=== PATIENT | female | born 1945 | race Asian ===

== ENCOUNTER → 2019-09-08 | Outpatient (CLI) | payer OTHER ==
[~2019-09-08] MED LIST: CONTRAST GIVEN. MC PRN; IOHEXOL 350 MG/ML 100 ML VIAL. IV ONE
[2019-09-08 10:41] LABS: CREATININE 0.9 mg/dL (0.6-1.0); GFR 61.4
--- NOTE | 2019-09-08 11:34 | RAD ---
CTA chest with contrast dated 09/08/2019. No comparison available. CLINICAL INDICATION: Dyspnea. History of lymphoma. TECHNIQUE: Contiguous axial imaging the chest performed following the intravenous demonstration of 100 cc Omnipaque 350. Study was performed as dedicated PE protocol with thin cut coronal MIPS 3-D reconstructions. One or more of the following individualized dose reduction techniques were utilized for this examination: 1. Automated exposure control 2. Adjustment of the mA and/or kV according to patient size 3. Use of iterative reconstruction technique FINDINGS: Contrast bolus is adequate. No evidence of central, lobar or segmental pulmonary embolus. The subsegmental branches are not well evaluated based on technique. Heart size mildly enlarged. No pericardial effusion. Coronary artery calcifications. There are enlarged partially calcified lymph nodes at the bilateral hilum, subcarinal region, right paratracheal region and left paratracheal and prevascular regions. The largest lymph node measures up to 2 cm short axis. No supraclavicular or axillary adenopathy. There is soft tissue thickening along the bronchovascular bundles bilaterally with asymmetric areas of consolidation in the bilateral suprahilar regions extending to the lung apices. There is a small cavitary component on the right that measures up to 2.3 cm maximum dimension. There are also several small noncalcified pulmonary nodules scattered throughout the bilateral upper lobes separate from the areas of main consolidation. Nodule in the left apex on image 23 measures 9 mm. Peripheral nodule in the left upper lobe on image 35 measures 10 mm. There is also patchy groundglass opacity in the bilateral lower lobes, left upper lobe/lingula and right upper lobe/middle lobe. No pleural effusion. No pneumothorax. Small noncalcified subpleural nodule in the right upper lobe on image 33 measures 8 mm. Images of the upper abdomen show mildly enlarged lymph nodes at the portacaval region and aortocaval region that measure up to 15 mm short axis. There are also borderline enlarged lymph nodes at the gastrohepatic ligament. Scattered diverticula within the colon. Bone windows show no acute findings. Multilevel spondylosis. IMPRESSION: 1. No evidence of central, lobar or segmental pulmonary embolus. 2. Extensive mediastinal and bilateral hilar lymphadenopathy which is partially calcified. Etiology is indeterminate but considerations would include granulomatous infection or sarcoidosis or tuberculosis, disease activity unknown. Treated lymphoma or metastatic disease are other considerations. Correlation with any prior imaging studies to assess for interval change. 3. There are focal areas of consolidation in the suprahilar regions bilaterally with prominent cavitary component on the right. This could be infectious or neoplastic. There are also several additional noncalcified pulmonary nodules in the bilateral upper lobes could be inflammatory or neoplastic. If indicated, PET scan could provide additional information. 4. Mild adenopathy of the upper abdomen, also nonspecific. Electronically signed by: Almas Marrero MD (09/08/2019 11:31 AM) [id number]
== END | disposition home or self-care (01) ==
LOC: CT 09:53
PROVIDERS: ATTEND Internal Medicine Critical Care Medicine
DX: K57.30 Diverticulosis of large intestine without perforation or abscess without bleeding (principal); R91.8 Other nonspecific abnormal finding of lung field; I11.9 Hypertensive heart disease without heart failure; I25.10 Atherosclerotic heart disease of native coronary artery without angina pectoris; R59.9 Enlarged lymph nodes, unspecified; R59.0 Localized enlarged lymph nodes; Z85.79 Personal history of other malignant neoplasms of lymphoid, hematopoietic and related tissues
CPT/HCPCS: 36415; 71275; 82565; 84520; Q9967

== ENCOUNTER → 2021-08-29 | Outpatient (CLI) | payer OTHER ==
--- NOTE | 2021-08-29 12:24 | RAD ---
EXAM: CT OF THE CHEST WITHOUT CONTRAST. HISTORY: Lymphoma. TECHNIQUE: Computed tomography of the chest was performed without intravenous contrast. One or more o f the following individualized dose reduction techniques were utilized for this examination: 1. Automated exposure control. 2. Adjustment of the mA and/or kV according to patient size. 3. Use of iterative reconstruction technique. COMPARISON: 09/08/2019. FINDINGS: Images of the upper abdomen reveal diffuse moderate colonic diverticulosis. There are sanchez es of cholecystectomy. Bone windows reveal no suspicious lesions. Calcified bilateral hilar and mediastinal lymphadenopathy is stable and is consistent with sarcoidosi s or treated lymphoma. There are no enlarged supraclavicular or axillary lymph nodes. There is no pleural or pericardial effusion. The heart is not enlarged. Scarring and architectural distortion in both upper lobes is chronic, in a pattern suggesting progres sive massive fibrosis. Interstitial line thickening and with superimposed groundglass opacities in kush th bases is interspersed by air trapping. Aeration of the lung bases is better than on the prior stud y. IMPRESSION: 1. Stable calcified mediastinal lymphadenopathy, consistent with treated lymphoma, sarcoidosis or old granulomatous disease. 2. Approximately stable interstitial lung disease with progressive massive fibrosis in both upper lob es. Correlate for remote mycobacterial infection, sarcoidosis or other causes. Electronically signed by: Jessee Cagle MD (08/29/2021 12:22 PM) [id number]
== END ==
LOC: CT 09:10
PROVIDERS: ATTEND Internal Medicine Critical Care Medicine
DX: R59.0 Localized enlarged lymph nodes (principal); R91.8 Other nonspecific abnormal finding of lung field; K57.30 Diverticulosis of large intestine without perforation or abscess without bleeding; R06.00 Dyspnea, unspecified; R05.3 Chronic cough
CPT/HCPCS: 71250